=== PATIENT | female | born 1955 | race Caucasian/White ===

== ENCOUNTER 2019-07-16 18:59 | Emergency (ER) | payer OTHER ==
[2019-07-16] MEDS: ONDANSETRON 4 MG INJ IV (20:09)
[2019-07-16] MEDS: SOD CHLORIDE 0.9% 1,000 ML IV (20:09)
[2019-07-16] MEDS: morphine 4 MG/ML VIAL IV (20:09)
== END 2019-07-16 22:00 | disposition home or self-care (01) ==
LOC: E/R 18:59
DX: K46.9 Unspecified abdominal hernia without obstruction or gangrene (principal); I10 Essential (primary) hypertension
CPT/HCPCS: 36415; 74176; 80053; 81003; 83690; 84484; 85025; 93005; 96374; 96375; 99285-25